=== PATIENT | male | born 1965 | race Caucasian/White ===

== ENCOUNTER → 2017-02-25 | Outpatient (CLI) | payer OTHER ==
[~2017-02-25] MED LIST: ALBUTEROL17 GM IH; CARDURA2 M1 PO; COMBIVENT200 INHALA IH; CYMBALTA60 MG PO; HUMALOG100 UNITS/ SQ; LANTUS100 UNIT/1 SQ; NEURONTIN800 MG PO; PLAVIX75 MG PO; PRAVASTATIN SOD80 MG PO; VERAPAMIL ER240 MG PO
== END | disposition home or self-care (01) ==
LOC: NUC 08:21
DX: I25.10 Atherosclerotic heart disease of native coronary artery without angina pectoris (principal)
CPT/HCPCS: 78452; 93017; A9500; J2785

== ENCOUNTER → 2017-07-06 | Outpatient (CLI) | payer OTHER ==
[~2017-07-06] VITALS: Ht 177.8 cm; Wt 108.8 kg
[~2017-07-06] MED LIST changes: +CRESTOR40 MG PO; +FIORICET 50-301 EACH PO; +NEURONTIN600 MG PO; -NEURONTIN800 MG PO; +NOVOLOG MI100 UNIT/2 SC; -PRAVASTATIN SOD80 MG PO; +TRAZODONE HCL50 MG PO; +VENTOLIN HFA18 GM IH
[2017-07-06 15:06] LABS: POINT-OF-CARE METER ID UU14107333
[2017-07-06 16:15] LABS: ANION GAP 17 MEQ/L (2-14); CHLORIDE 98 MEQ/L (99-109); POTASSIUM 4.3 MEQ/L (3.7-5.4); SAMPLE HEMOLYSIS CHECK 0; SAMPLE ICTERIC CHECK 1; SAMPLE LIPEMIA CHECK 0; SODIUM 136 MEQ/L (136-147)
[2017-07-06 16:20] LABS: GFR ESTIMATE (CALCULATED) > 59 mL/min/; GLUCOSE 161 mg/dL (70-99); UREA NITROGEN (BUN) 12 mg/dL (9-23)
[2017-07-06 17:30] LABS: POINT-OF-CARE METER ID UU13113819; POINT-OF-CARE USER ID ADMSLT55
== END | disposition home or self-care (01) ==
LOC: AMB 14:28
PROVIDERS: Internal Medicine Gastroenterology
PROC: 0DJD8ZZ Inspection of Lower Intestinal Tract, Via Natural or Artificial Opening Endoscopic (ICD-10-PCS; principal; 2017-07-06)
DX: Z12.11 Encounter for screening for malignant neoplasm of colon (principal); Z86.010 Personal history of colon polyps; K64.8 Other hemorrhoids; E11.43 Type 2 diabetes mellitus with diabetic autonomic (poly)neuropathy; K31.84 Gastroparesis; J45.909 Unspecified asthma, uncomplicated; I10 Essential (primary) hypertension; F41.8 Other specified anxiety disorders; G47.30 Sleep apnea, unspecified; K21.9 Gastro-esophageal reflux disease without esophagitis; Z95.5 Presence of coronary angioplasty implant and graft; Z79.4 Long term (current) use of insulin; Z79.82 Long term (current) use of aspirin; Z83.71 Family history of colonic polyps
CPT/HCPCS: 80048; 82948; J2250; J3010

== ENCOUNTER → 2018-01-05 | Outpatient (CLI) | payer OTHER | END | disposition home or self-care (01) | LOC: RAD 13:47 | DX: I65.23 Occlusion and stenosis of bilateral carotid arteries (principal) | CPT/HCPCS: 70450; 93880 ==